=== PATIENT | female | born 1980 | race Caucasian/White ===

== ENCOUNTER 2016-07-03 14:46 | Emergency (ER) | payer MEDICAID ==
[~2016-07-03] VITALS: Wt 81.5 kg
[~2016-07-03 14:46] MED LIST: PRENAT PO
[2016-07-03] MEDS ORDERED: IBUP-1542 PO (16:33)
[2016-07-03] MEDS ORDERED: DIAZ-90 PO (16:36)
[2016-07-03] MEDS ORDERED: IBUPROFEN 800 MG TAB PO ONE (17:00)
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
== END 2016-07-03 17:21 | disposition home or self-care (01) ==
LOC: FTE 14:46
DX: S13.4XXA Sprain of ligaments of cervical spine, initial encounter (principal); V49.49XA Driver injured in collision with other motor vehicles in traffic accident, initial encounter
CPT/HCPCS: 99283

== ENCOUNTER 2017-01-22 22:20 | Outpatient (CLI) | payer MEDICAID ==
[~2017-01-22] VITALS: Ht 157.5 cm; Wt 90.7 kg
[~2017-01-22 22:20] MED LIST changes: +DIAZ-90 PO; +IBUP-1542 PO
[2017-01-23 03:31] VITALS: BP 118/60; PULSE 104; RESP 18; Ht 157.5 cm; Wt 90.7 kg
[2017-01-23 03:45] LABS: BASOPHILS % 0.3 % (0.0-2.0); EOSINOPHILS # 0.1 10^3/ul (0.0-0.5); EOSINOPHILS % 0.6 % (0.0-7.0); HEMATOCRIT 33.3 % (37.0-47.0); HEMOGLOBIN 11.5 g/dl (12.0-16.0); LYMPHOCYTES # 1.5 10^3/ul (0.8-2.9); LYMPHOCYTES % 14.4 % (15.0-51.0); MEAN CORPUSCULAR HGB CONC 34.5 g/dl (32.0-37.0); MEAN CORPUSCULAR VOLUME 89.8 fl (82.0-101.0); MEAN PLATELET VOLUME 10.9 fl (7.4-10.4); MONOCYTE # 0.8 10^3/ul (0.3-0.9); MONOCYTES % 7.7 % (0.0-11.0); NEUTROPHIL # 7.8 10^3/ul (1.6-7.5); NEUTROPHILS % 74.8 % (39.0-77.0); PLATELET COUNT 248 10^3/UL (140-415); RED BLOOD COUNT 3.71 10^6/ul (4.20-5.40); RED CELL DISTRIBUTION WIDTH 13.1 % (11.5-14.5); WHITE BLOOD COUNT 10.4 10^3/ul (4.8-10.8)
[2017-01-23 03:46] LABS: ADD UMIC NO; UR ASCORBIC ACID NEGATIVE (NEGATIVE); UR BILIRUBIN (Dip) NEGATIVE (NEGATIVE); UR BLOOD (Dip) NEGATIVE (NEGATIVE); UR CLARITY CLEAR (CLEAR); UR COLOR YELLOW (YELLOW); UR GLUCOSE (Dip) NEGATIVE (NEGATIVE); UR KETONES (Dip) NEGATIVE (NEGATIVE); UR LEUKOCYTE ESTERASE (Dip) NEGATIVE Leu/ul (NEGATIVE); UR NITRITE (Dip) NEGATIVE (NEGATIVE); UR SPECIFIC GRAVITY (Dip) 1.009 (1.003-1.030); UR TOTAL PROTEIN (Dip) NEGATIVE (NEGATIVE); UR UROBILINOGEN (Dip) NEGATIVE (NEGATIVE)
--- NOTE | 2017-01-23 06:22 | PN ---
Triage Information Date/Time 01/23/610 Weeks of Gestation 25w3d twin gestation : 4 Para: 3 Diabetes: none Hypertention: none Additional information c/o pelvic pain Objective Vital Signs Date Time Temp Pulse Resp B/P Pulse Ox O2 Delivery O2 Flow Rate FiO2 01/23/17 03:31 98.4 104 18 118/60 Room Air Heart Rate: 150's (twin B 165) Contractions: None Exam abdomen soft neg for tenderness u/a neg cbc nl Results/Medications Result Diagram: 01/22/17 2350 Results 24 hrs Laboratory Tests Test 01/22/17 23:50 White Blood Count 10.4 Red Blood Count 3.71 L Hemoglobin 11.5 L Hematocrit 33.3 L Mean Corpuscular Volume 89.8 Mean Corpuscular Hemoglobin 31.0 Mean Corpuscular Hemoglobin Concent 34.5 Red Cell Distribution Width 13.1 Platelet Count 248 Mean Platelet Volume 10.9 H Neutrophils % 74.8 Lymphocytes % 14.4 L Monocytes % 7.7 Eosinophils % 0.6 Basophils % 0.3 Nucleated Red Blood Cells % 0.0 Neutrophils # 7.8 H Lymphocytes # 1.5 Monocytes # 0.8 Eosinophils # 0.1 Basophils # 0.0 Nucleated Red Blood Cells # 0.0 Urine Color YELLOW Urine Clarity CLEAR Urine pH 7.0 Urine Specific [place] 1.009 Urine Ketones NEGATIVE Urine Nitrite NEGATIVE Urine Bilirubin NEGATIVE Urine Urobilinogen NEGATIVE Urine Leukocyte Esterase NEGATIVE Urine Hemoglobin NEGATIVE Urine Glucose NEGATIVE Urine Total Protein NEGATIVE Fibronectin NEGATIVE Imaging Results CVL 3 u/s nl as report shows LISE adequate for both Assessment/Plan IUP 25w3d twin gestations plan discharge home f/u with her OB TATUM NORRIS MD Jan 23, 2017 06:22
== END 2017-01-23 06:00 | disposition home or self-care (01) ==
LOC: OBT 22:20 → L-D 22:20 → OBT 01-23 06:00
PROVIDERS: ATTEND Obstetrics & Gynecology
DX: O30.042 Twin pregnancy, dichorionic/diamniotic, second trimester (principal); Z3A.25 25 weeks gestation of pregnancy
CPT/HCPCS: 36415; 81003; 82731; 85025; Z7500; G0463

== ENCOUNTER 2017-03-17 11:27 | Inpatient (IN) | payer MEDICAID ==
[~2017-03-17] VITALS: Ht 157.5 cm; Wt 92.0 kg
[~2017-03-17 11:27] MED LIST changes: -DIAZ-90 PO; -IBUP-1542 PO
[2017-03-17 12:20] VITALS: Ht 157.5 cm; Wt 92.0 kg
[2017-03-17 12:21] VITALS: BP 110/70; PULSE 92; RESP 20
[2017-03-17 12:39] LABS: ADD UMIC YES; UR ASCORBIC ACID NEGATIVE (NEGATIVE); UR BILIRUBIN (Dip) NEGATIVE (NEGATIVE); UR BLOOD (Dip) NEGATIVE (NEGATIVE); UR CLARITY SLIGHTLY CLOUDY (CLEAR); UR COLOR YELLOW (YELLOW); UR GLUCOSE (Dip) NEGATIVE (NEGATIVE); UR KETONES (Dip) NEGATIVE (NEGATIVE); UR LEUKOCYTE ESTERASE (Dip) 3+ Leu/ul (NEGATIVE); UR NITRITE (Dip) NEGATIVE (NEGATIVE); UR RBC 1 /HPF (0-5); UR SPECIFIC GRAVITY (Dip) 1.005 (1.003-1.030); UR SQUAMOUS EPITHELIAL CELL FEW /HPF (FEW); UR TOTAL PROTEIN (Dip) NEGATIVE (NEGATIVE); UR UROBILINOGEN (Dip) NEGATIVE (NEGATIVE)
[2017-03-17 12:47] LABS: INR 0.96; PROTIME 12.8 Sec (12.2-14.2)
[2017-03-17 12:48] LABS: PARTIAL THROMBOPLASTIN TIME 27.8 Sec (25.0-35.0)
[2017-03-17 12:54] LABS: ALBUMIN 3.1 g/dl (3.3-4.9); BILIRUBIN,INDIRECT 0.2 mg/dl (0-1.1); BILIRUBIN,TOTAL 0.2 mg/dl (0.2-1.3); CALCIUM 9.1 mg/dl (8.4-10.2); CREATININE 0.6 mg/dl (0.44-1.00); POTASSIUM 3.9 mmol/L (3.5-5.1); TOTAL PROTEIN 6.2 g/dl (6.1-8.1)
[2017-03-17 12:54] LABS: BASOPHILS % 0.5 % (0.0-2.0); EOSINOPHILS % 0.7 % (0.0-7.0); HEMATOCRIT 32.8 % (37.0-47.0); HEMOGLOBIN 11.3 g/dl (12.0-16.0); LYMPHOCYTES # 0.8 10^3/ul (0.8-2.9); LYMPHOCYTES % 13.7 % (15.0-51.0); MEAN CORPUSCULAR HGB CONC 34.5 g/dl (32.0-37.0); MEAN CORPUSCULAR VOLUME 84.3 fl (82.0-101.0); MEAN PLATELET VOLUME 11.6 fl (7.4-10.4); MONOCYTE # 0.5 10^3/ul (0.3-0.9); MONOCYTES % 7.8 % (0.0-11.0); NEUTROPHIL # 4.7 10^3/ul (1.6-7.5); NEUTROPHILS % 76.6 % (39.0-77.0); PLATELET COUNT 214 10^3/UL (140-415); RED BLOOD COUNT 3.89 10^6/ul (4.20-5.40); RED CELL DISTRIBUTION WIDTH 13.5 % (11.5-14.5); WHITE BLOOD COUNT 6.1 10^3/ul (4.8-10.8)
[2017-03-17 13:03] LABS: URIC ACID 4.9 mg/dl (3.1-7.9)
--- NOTE | 2017-03-17 13:18 | RADRPT ---
PROCEDURE: US OB biophysical profile. CLINICAL INDICATION: PIH , pain TECHNIQUE: Multiple sonographic images of the pelvis were obtained. The images were reviewed on a PACS workstation. COMPARISON: No prior studies are available for comparison. FINDINGS: There is a twin viable intrauterine gestation. Twin A Cardiac activity is present with 140 beats per minute. There is a vertex presentation. The placenta is anterior. MVP = 4.1 cm Biophysical profile: movement 2/2 tone 2/2. breathing 2/2 LISE 2/2 Total 8/8 Twin B Cardiac activity is present with 140 beats per minute. There is a breech presentation. The placenta is anterior. MVP = 3.9 cm Biophysical profile: movement 2/2 tone 2/2. breathing 2/2 LISE 2/2 Total 8/8 RPTAT: AA . IMPRESSION: Normal biophysical profile for twin gestation . . .Percy Moffett MD, MD Date Time Electronically viewed and signed by .Percy Moffett MD, MD on 03/17/2017 13:17 .S/
[2017-03-17 13:43] LABS: SCRET 0.6 mg/dl (0.44-1.00)
--- NOTE | 2017-03-17 14:31 | TRIAGE ---
OB Triage Datetime Report Generated by CPN: 03/17/2017 14:30 Datetime: 03/17/2017 12:51 Labor Evaluation Frequency: 8-15 Monitor Mode: External Duration (sec)2399: 60 Quality: Moderate Pattern: Normal: <= 5 Contractions in 10 Minutes Resting Tone Hartman: Relaxed Heart Rate FHR Baseline Rate: 150 Monitor Mode: External US FHR Baseline Changes: No Baseline Change Variability: Moderate 6-25 bpm Accelerations: 15X15 Decelerations: None Category: Category I Pain Assessment Pain Scale: 3 Pain Presence: Intermittent Pain Type: Cramping Pain Location: Abdomen Pain Goal: 1 Membrane Status: Intact Datetime: 03/17/2017 12:14 EGA: 31.5 Datetime: 03/17/2017 12:11 Time of Arrival: 03/17/2017 11:25 Arrived By: Ambulatory Arrived From: Home Chief Complaint: HEERE FOR Movement: Present Contractions: Irregular Vaginal Bleeding: None Patient Complaints: Other Time Provider Notified: 03/17/2017 12:00 Provider Notified: DR WEEKSLE Initial Plan: EFM,PIH LABS, NST/BPP Datetime: 03/17/2017 12:05 Labor Evaluation Frequency: IRREG Monitor Mode: External Duration (sec)2399: 50 Quality: Mild Pattern: Normal: <= 5 Contractions in 10 Minutes Resting Tone Hartman: Relaxed Heart Rate FHR Baseline Rate: 150 Monitor Mode: External US FHR Baseline Changes: No Baseline Change Variability: Moderate 6-25 bpm Accelerations: 10X10 Decelerations: None Category: Category I Pain Assessment Pain Scale: 3 Pain Presence: Intermittent Pain Type: Cramping Pain Location: Abdomen Membrane Status: Intact Datetime: 01/23/2017 21:40 Vaginal Exam Dilatation (cms): 0.0 Effacement (%): 30 Station: -3 Datetime: 01/23/2017 06:00 Stage of : OB Triage Labor Evaluation Frequency: 2/HR Monitor Mode: External Duration (sec)2399: 40-60 Quality: Mild Datetime: 01/23/2017 05:00 Stage of : OB Triage Labor Evaluation Frequency: 0 Monitor Mode: External Datetime: 01/23/2017 04:40 Stage of : OB Triage Datetime: 01/23/2017 04:00 Stage of : OB Triage Labor Evaluation Frequency: 4/HR Monitor Mode: External Duration (sec)2399: 40 Quality: Mild Datetime: 01/23/2017 03:18 Stage of : OB Triage Datetime: 01/23/2017 03:00 Stage of : OB Triage Labor Evaluation Frequency: 0 Monitor Mode: External Heart Rate FHR Baseline Rate: 155 Monitor Mode: External US FHR Baseline Changes: No Baseline Change Variability: Moderate 6-25 bpm Accelerations: 10X10 Decelerations: None Datetime: 01/23/2017 02:00 Labor Evaluation Frequency: 2-4 Monitor Mode: External Duration (sec)2399: 40-80 Quality: Mild Pattern: Normal: <= 5 Contractions in 10 Minutes Resting Tone Hartman: Relaxed Heart Rate FHR Baseline Rate: 155 Monitor Mode: External US FHR Baseline Changes: No Baseline Change Variability: Moderate 6-25 bpm Accelerations: 15X15 Decelerations: None Category: Category I Datetime: 01/23/2017 01:00 Heart Rate FHR Baseline Rate: 155 Monitor Mode: External US FHR Baseline Changes: No Baseline Change Variability: Moderate 6-25 bpm Accelerations: 15X15 Decelerations: None Category: Category I Datetime: 01/23/2017 00:00 Heart Rate FHR Baseline Rate: 155 Monitor Mode: External US FHR Baseline Changes: No Baseline Change Variability: Moderate 6-25 bpm Accelerations: 15X15 Decelerations: None Category: Category I Datetime: 01/22/2017 23:36 Stage of : OB Triage Time of Arrival: 01/23/2017 21:20 Arrived By: Wheelchair Arrived From: Home Chief Complaint: ABDOMINAL PAIN Movement: Present Contractions: Denies/Absent Time Contractions Began: 01/22/2017 18:00 Rupture of Membranes: Denies Vaginal Bleeding: None Vaginal Discharge: Denies Recent Sexual Intercouse: Denies Abdominal Trauma: Not Applicable Patient Complaints: None Time Provider Notified: 01/22/2017 21:57 Provider Notified: DR NORRIS Initial Plan: CALL COURTNEY STALLINGS Maternal Assessment Level of Consciousness: Fully Conscious DTR's/Clonus: DTRs 2+; No Clonus Headache: Denies Blurred Vision: No Respiratory Effort: Unlabored; Regular Rhythm; Equal Expansion Breath Sounds, Left: Clear and Equal Breath Sounds, Right: Clear and Equal Nausea/Vomiting: Denies RUQ Epigastric Pain: Denies Lower Extremities Edema: None Degree: None Upper Extremities Edema: None Degree: None Facial Edema: None Temperature Route: Oral Fall Risk Assessment History of Falling: (0) No Secondary Diagnosis: (0) No Ambulatory Aid: (0) Bedrest/Nurse Assist IV Therapy: (0) No Gait: (0) Normal/Bedrest/Immobile Mental Status: (0) Oriented to Own Ability Fall Score: 0 Fall Risk Score Definition: No Risk: No action required Monitor Mode: External Monitor Mode: External US Pain Assessment Pain Scale: 5 Pain Presence: Intermittent Pain Type: Contraction Pain Location: Abdomen; Back Datetime: 01/22/2017 23:00 Stage of : OB Triage Heart Rate FHR Baseline Rate: 145 Monitor Mode: External US FHR Baseline Changes: No Baseline Change Variability: Moderate 6-25 bpm Accelerations: 15X15 Decelerations: None Category: Category I Datetime: 01/22/2017 22:00 Stage of : OB Triage Labor Evaluation Frequency: 0 Monitor Mode: External Heart Rate FHR Baseline Rate: 155 Monitor Mode: External US FHR Baseline Changes: No Baseline Change Variability: Moderate 6-25 bpm Accelerations: 10X10 Decelerations: None Category: Category I Datetime: 01/22/2017 21:57 Stage of : OB Triage Datetime: 01/22/2017 21:28 Stage of : OB Triage Datetime: 01/22/2017 21:25 Stage of : OB Triage Maternal Assessment Level of Consciousness: Fully Conscious DTR's/Clonus: DTRs 2+; No Clonus Headache: Denies Blurred Vision: No Respiratory Effort: Unlabored; Regular Rhythm; Equal Expansion Breath Sounds, Left: Clear and Equal Breath Sounds, Right: Clear and Equal Nausea/Vomiting: Denies RUQ Epigastric Pain: Denies Lower Extremities Edema: None Degree: None Upper Extremities Edema: None Degree: None Facial Edema: None Temperature Route: Oral Fall Risk Assessment History of Falling: (0) No Secondary Diagnosis: (0) No Ambulatory Aid: (0) Bedrest/Nurse Assist IV Therapy: (0) No Gait: (0) Normal/Bedrest/Immobile Mental Status: (0) Oriented to Own Ability Fall Score: 0 Fall Risk Score Definition: No Risk: No action required Monitor Mode: External Monitor Mode: External US Pain Assessment Pain Scale: 5 Pain Presence: Intermittent Pain Type: Cramping Pain Location: Abdomen; Back
[2017-03-17] MEDS ORDERED: BETAMET NA PHOS/AC(6 MG/ML) 5ML INJ IM SCH (16:30)
[2017-03-17] MEDS ORDERED: MAGNESIUM SULFATE 4 GM/100 ML 100 ML IV ONE (16:30)
[2017-03-17] MEDS ORDERED: AMPICILLIN 2 GM/NS (PMX) 100 ML IV ONE (16:30)
[2017-03-17] MEDS: LACTATED RINGER'S 1,000 ML IV SCH (16:59)
[2017-03-17] MEDS: MAGNESIUM SULFATE 20 GM/500 ML 500 ML IV SCH (17:37)
--- NOTE | 2017-03-17 18:34 | RADRPT ---
PROCEDURE: US OB. Ultrasound cervix CLINICAL INDICATION: Size and dates TECHNIQUE: Multiple sonographic images of the pelvis were obtained. In addition, transvaginal imag es of the cervix were obtained. The images were reviewed on a PACS workstation. COMPARISON: No prior studies are available for comparison. FINDINGS: The cervix is closed with a length of 1.6 cm. There is a twin viable intrauterine gestation. BABY A Cardiac activity is present with 150 beats per minute. There is a vertex presentation. The placenta is anterior. Measurements were made in order to determine age. The results are as follows: BPD =8.4 cm HC =30.3 cm AC =30.3 cm FL =6.5 cm The EFW = 2303g, <3%. BABY B Cardiac activity is present with 146 beats per minute. There is a breech presentation. The placenta is anterior. Measurements were made in order to determine age. The results are as follows: BPD =8.6 cm HC =30 cm AC =28.9 cm FL =6.4 cm The EFW = 2138 g, <3%. Estimated gestational age of approximately 33 weeks and 4-6 days. The estimated date of delivery is 04/29/2017 and 05/01/2017, based on ultrasound measurements. RPTAT: AA IMPRESSION: Twin viable intrauterine gestation of approximately 33 weeks and 4-6 days. .Percy Moffett MD, MD Date Time Electronically viewed and signed by .Percy Moffett MD, MD on 03/17/2017 18:33 .S/
--- NOTE | 2017-03-17 20:08 | HP ---
Date/Time of Note Date/Time of Note DATE: 03/17/17 TIME: 20:03 OB - History Hx of Present Free Text/Dictation 4 para 3 with twin gestation at 33 weeks and 1 day of gestation with estimated date of delivery May 06, 2017 Twins are vertex/breech presentation Patient presents with regular contractions She has also been evaluated for -induced hypertension Blood pressures are within normal limits 24 hour urine protein collection is 377 Chief Complaint: Contractions Estimated Due Date: May 06, 2017 : 4 Para: 3 Care: Good Care Abnormal Ultrasound Findings: PROCEDURE: US OB. Ultrasound cervix CLINICAL INDICATION: Size and dates TECHNIQUE: Multiple sonographic images of the pelvis were obtained. In addition, transvaginal images of the cervix were obtained. The images were reviewed on a PACS workstation. COMPARISON: No prior studies are available for comparison. FINDINGS: The cervix is closed with a length of 1.6 cm. There is a twin viable intrauterine gestation. BABY A Cardiac activity is present with 150 beats per minute. There is a vertex presentation. The placenta is anterior. Measurements were made in order to determine age. The results are as follows: BPD = 8.4 cm HC = 30.3 cm AC = 30.3 cm FL = 6.5 cm The EFW = 2303g, <3%. BABY B Cardiac activity is present with 146 beats per minute. There is a breech presentation. The placenta is anterior. Measurements were made in order to determine age. The results are as follows: BPD = 8.6 cm HC = 30 cm AC = 28.9 cm FL = 6.4 cm The EFW = 2138 g, <3%. Estimated gestational age of approximately 33 weeks and 4-6 days. The estimated date of delivery is 04/29/2017 and 05/01/2017, based on ultrasound measurements. RPTAT: AA PROCEDURE: US OB biophysical profile. CLINICAL INDICATION: PIH , pain TECHNIQUE: Multiple sonographic images of the pelvis were obtained. The images were reviewed on a PACS workstation. COMPARISON: No prior studies are available for comparison. FINDINGS: There is a twin viable intrauterine gestation. Twin A Cardiac activity is present with 140 beats per minute. There is a vertex presentation. The placenta is anterior. MVP = 4.1 cm Biophysical profile: movement 2/2 tone 2/2. breathing 2/2 LISE 2/2 Total 02/06 Twin B Cardiac activity is present with 140 beats per minute. There is a breech presentation. The placenta is anterior. MVP = 3.9 cm Biophysical profile: movement 2/2 tone 2/2. breathing 2/2 LISE 2/2 Total 02/06 RPTAT: AA . IMPRESSION: Normal biophysical profile for twin gestation . . .Percy Moffett MD, MD Date Time Electronically viewed and signed by .Percy Moffett MD, MD on 03/17/2017 13: 17 .S/ CC: ANA HELM MD Obstetrical Complications: Gestational Hypertension Medical Complications: None Past Family/Social History * Past Medical, Surgical, Family and Obstetric Histories reviewed from chart. OB Admission Exam Vital Signs Vital Signs Vital Signs Date Time Temp Pulse Resp B/P Pulse Ox O2 Delivery O2 Flow Rate FiO2 03/17/17 12:21 98.0 92 20 110/70 Room Air Physical Exam HEENT: WNL Heart: Rhythm Normal Lungs: Clear, Equal Abdomen: WNL Extremities: Normal Reflexes: Normal Cervical Dilatation: 1cm Membranes: Intact Heart Rate: 140's Accelerations: Accelerations Present Decelerations: No Decelerations Varibility: Moderate Contractions on Admission: 6-10 Minutes Apart Intensity: Moderate Last 72 hours Lab Results CBC & BMP 03/17/17 11:50 03/17/17 12:50 Liver Function Test 03/17/17 11:50 Alanine Aminotransferase (ALT/SGPT) 30 Albumin 3.1 L Alkaline Phosphatase 282 H Aspartate Amino Transf (AST/SGOT) 27 Direct Bilirubin 0.00 Total Protein 6.2 OB Assessment/Plan Reason for admission: labor Other plan: Magnesium sulfate for prevention of labor Betamethasone for lung maturity Antibiotics for GBS prophylaxis Perinatology consultation Copies To: CC: ANA HELM MD, BAHAREH MD Mar 17, 2017 20:08
[2017-03-17] MEDS: AMPICILLIN 1 GM/NS (PMX) 50 ML IV SCH (20:53)
[2017-03-18] MEDS: LACTATED RINGER'S 1,000 ML IV SCH ×3 (00:18→23:12)
[2017-03-18] MEDS: AMPICILLIN 1 GM/NS (PMX) 50 ML IV SCH ×3 (00:24→08:44)
[2017-03-18] MEDS: MAGNESIUM SULFATE 20 GM/500 ML 500 ML IV SCH (03:31)
--- NOTE | 2017-03-18 12:53 | RADRPT ---
PROCEDURE: Limited OB ultrasound CLINICAL INDICATION: Cervical length. TECHNIQUE: Sonographic evaluation to assess the cervical length was performed. COMPARISON: 03/17/2017. FINDINGS: Cervical length measures approximately 1.0 cm, previously 1.6 cm. IMPRESSION: Shortened cervical length, compatible with cervical incompetence. RPTAT: EE .Kal Yuan MD, MD Date Time Electronically viewed and signed by .Kal Yuan MD, on 03/18/2017 12:58 .C/
[2017-03-18] MEDS ORDERED: CEFAZOLIN 2 GM/50 ML (PMX) 50 ML IVPB ONE (13:11)
[2017-03-18] MEDS ORDERED: LACTATED RINGER'S 1,000 ML IV SCH (13:15)
[2017-03-18] MEDS ORDERED: OXYTOCIN 30 UNITS/LR 500 ML IV SCH (13:30)
[2017-03-18] MEDS ORDERED: CEFAZOLIN 2 GM/50 ML (PMX) 50 ML IV SCH ×2 (13:30→15:30)
[2017-03-18 14:12] LABS: BASOPHILS % 0.2 % (0.0-2.0); HEMATOCRIT 35.5 % (37.0-47.0); HEMOGLOBIN 11.7 g/dl (12.0-16.0); LYMPHOCYTES # 0.7 10^3/ul (0.8-2.9); LYMPHOCYTES % 7.9 % (15.0-51.0); MEAN CORPUSCULAR HEMOGLOBIN 28.7 pg (29.0-33.0); MEAN PLATELET VOLUME 11.9 fl (7.4-10.4); MONOCYTE # 0.3 10^3/ul (0.3-0.9); MONOCYTES % 3.2 % (0.0-11.0); NEUTROPHIL # 7.8 10^3/ul (1.6-7.5); NEUTROPHILS % 87.9 % (39.0-77.0); PLATELET COUNT 236 10^3/UL (140-415); RED BLOOD COUNT 4.08 10^6/ul (4.20-5.40); WHITE BLOOD COUNT 8.9 10^3/ul (4.8-10.8)
[2017-03-18 14:16] LABS: INR 0.99; PROTIME 13.1 Sec (12.2-14.2)
[2017-03-18 14:17] LABS: PARTIAL THROMBOPLASTIN TIME 27.2 Sec (25.0-35.0)
[2017-03-18] MEDS ORDERED: METHYLERGONOVINE 0.2 MG INJ ONE (14:23)
[2017-03-18] MEDS ORDERED: HYDROmorphONE 1 MG/ML SYG IV PRN ×3 (15:00)
[2017-03-18] MEDS ORDERED: NALOXONE (0.4 MG/ML) INJ IV PRN (15:00)
[2017-03-18] MEDS ORDERED: MEPERIDINE 25 MG INJ IV PRN (15:00)
[2017-03-18] MEDS ORDERED: HYDROmorphONE (0.2 MG/ML) 10ML SYG IV PRN ×3 (15:00)
[2017-03-18] MEDS ORDERED: DIPHENHYDRAMINE 50 MG INJ IV PRN ×2 (15:00)
[2017-03-18] MEDS ORDERED: ONDANSETRON 4 MG INJ IV PRN ×2 (15:00)
[2017-03-18] MEDS ORDERED: HYDROCODONE/APAP (5/325) TAB PO PRN (15:30)
[2017-03-18] MEDS ORDERED: OXYTOCIN 30 UNITS/LR 500 ML IV PRN ×2 (15:30→17:00)
[2017-03-18] MEDS ORDERED: LANOLIN 7 GM TUBE TOP PRN (15:30)
[2017-03-18] MEDS ORDERED: MISOPROSTOL 200 MCG TAB PR PRN ×2 (15:30→17:00)
[2017-03-18] MEDS ORDERED: CARBOPROST 250 MCG INJ IM PRN ×2 (15:30→17:00)
[2017-03-18] MEDS ORDERED: NA PHOSPHATE/BIPHOS 133 ML ENEMA PR PRN (15:30)
[2017-03-18] MEDS ORDERED: METHYLERGONOVINE 0.2 MG TAB PO PRN (15:30)
[2017-03-18] MEDS ORDERED: METHYLERGONOVINE 0.2 MG INJ IM PRN ×2 (15:30→17:00)
--- NOTE | 2017-03-18 15:35 | OPR ---
Date/Time of Note Date/Time of Note DATE: 03/18/17 TIME: 15:32 Operative Report Free Text/Dictation PRIMARY C/S Preoperative Diagnosis 33.2 WEEKS TWIN GESTATION ACTIVE Labor baby A CEPHALIC Baby B Breech Surgeon see signature line Remote Broadcast Technician: TATUM NORRIS MD Anesthesia Type: spinal Anesthesiologist: ZANE ALDRICH MD Estimated Blood Loss: other Transfusion Required: no Specimens placenta Grafts/Implants: none Complications: no Pt Condition Post Procedure: stable Disposition: PACU ANA HELM MD Mar 18, 2017 15:35
[2017-03-18] MEDS: OXYTOCIN 30 UNITS/LR 500 ML IV SCH ×2 (15:39→18:54)
[2017-03-18] MEDS ORDERED: DIPHENHYDRAMINE 50 MG INJ ONE (16:29)
[2017-03-18] MEDS ORDERED: DIPHENHYDRAMINE 50 MG INJ IM ONE (16:30)
[2017-03-18 16:50] VITALS: BP 120/66; PULSE 81; RESP 18
--- NOTE | 2017-03-18 17:05 | PREOPHP ---
DATE OF ADMISSION: 03/17/2017 HISTORY OF PRESENT ILLNESS: This is a 36-year-old female, 4, para 3, with a twin gestation at 33 weeks and 1 day of gestation, with an EDC of May 04. This patient had come in yesterday for PIH panel, due to mild PIH and due to complaints of headaches and contractions. She was found to have proteinuria of 377 in 24 hours. A number of her blood pressures were normal. All the PIH labs were otherwise normal. She had off and on headaches, which put her in risk position for severe PIH. This patient was kept in the hospital by the laborist, and at this time it was noted that she was having contractions. She had been treated with the betamethasone, magnesium sulfate and antibiotics, and she was kept overnight. She was on 2 g of magnesium sulfate, and at this time she was very uncomfortable, in spite of the tocolysis. She broke through with contractions, and she was examined, with a 3-cm dilatation, 100 percent effacement, with active labor and pain. Patient was taken for a section, due to 2nd fetus being in breech position. PAST HISTORY: She had good care since the beginning of the . She was diagnosed with monochorionic twin gestation. The patient had been seeing the perinatologist regularly and at this time today, she is 33 weeks, 2 days, twin gestation, in active labor. She is advised for a primary section. Her past history is for 3 vaginal deliveries. She had no other complications. The patient at this time does not have any hypertension issues or any headaches, dizziness, or epigastric pain. FAMILY HISTORY: Noncontributory. Otherwise, family history is unremarkable. PHYSICAL EXAMINATION: VITAL SIGNS: Blood pressure of 110/70, pulse is 80, respirations 16, and she was afebrile. HEAD AND NECK: Normal. CHEST: Clear. HEART: Normal sinus rhythm. LUNGS: Clear. ABDOMEN: Soft. Nontender. No masses. The contractions were every 5 minutes. The cervix was 3 cm dilated, 100 percent effaced, -2 station, membranes intact. EXTREMITIES: With 2+ reflexes. Some leg edema. Normal reflexes. DIAGNOSIS: The patient has a diagnosis of twin at 33.2 weeks gestation, in active labor. She is undergoing a primary section. She has been advised of the possible risks and possible complications of the procedure, with her alternatives and options. Written information was provided. She had no more questions and agreed to go ahead with the procedure, with full understanding and no more questions. Dictated By: Shahida Stevens MD /ewa/jb /Document#: [id number]
[2017-03-18 17:13] VITALS: BP 117/67; PULSE 86; RESP 18
--- NOTE | 2017-03-18 17:17 | OPR ---
DATE OF OPERATION: 03/18/2017 PROCEDURE: Primary low segment transverse section. PREOPERATIVE DIAGNOSIS: 33.2 weeks, twin gestation, in active labor. POSTOPERATIVE DIAGNOSIS: 33.2 weeks, twin gestation, in active labor. SURGEON: Dr. Stevens. COAL HANDLER: . ANESTHESIA: Dr. Gonzales. OPERATIVE PROCEDURE: The patient was given a spinal anesthesia, placed in the supine position. A Carrasquillo catheter has been placed in the bladder and a transverse incision, 2 cm above the pubic bone was made. The abdomen was opened in layers without difficulties. The abdominal cavity was reached and the lower uterine segment was identified and an Adrian retractor was placed. A bladder flap was made. The uterus was opened in the midline with a scalpel. The incision was increased laterally on either side for about 3 inches. The baby's head was delivered first baby A delivered without complication, was cephalic presentation. The cord was clamped and cut. The baby was handed over to the fish agent team. The second baby was footling breech. The footling breech was removed was brought out of the incision, the baby was delivered as a breech presentation. The cord was clamped and cut. The baby was handed over to the NICU team again and the cord blood was obtained from both cords. The placenta was removed. It appears to be monochorionic monoamniotic. The placenta was lastly removed and the uterus was cleaned out and closed in 2 layers using number 1 Monocryl continuous suture imbedded in the first line of suture and also single stitches with O chromic MH sutures were applied to the uterus for reinforcement. The tubes and the uterus was a little bit hypertrophic. There was a little cyst on the left paratubal area that was cauterized and both ovaries were normal. The abdominal cavity was cleaned out and a piece of Interceed was left on the incisional area. The peritoneum was closed with a 2- 0 Vicryl suture. The fascia was closed with 0 PDS loop suture, 2- 0 Vicryl for subcutaneous tissue, 3-0 Monocryl subcuticular to the skin. Steri-Strips and Dermabond were applied. The patient tolerated the procedure well and left the OR awake and stable. Sponge counts and instrument counts were correct. Intravenous antibiotics were given for prophylaxis. The urine was clear at the end of the procedure. ESTIMATED BLOOD LOSS: Approximately 900 cc. Dictated By: Shahida Stevens MD /ewa/zak /Document#: [id number]
[2017-03-18 20:00] VITALS: BP 117/67; PULSE 81; RESP 18
[2017-03-18] MEDS: KETOROLAC 30 MG INJ IV PRN (20:01)
[2017-03-18] MEDS: SENNA/DOCUSATE NA (8.6MG/50MG) TAB PO SCH (21:31)
[2017-03-18] MEDS: CEFAZOLIN 2 GM/50 ML (PMX) 50 ML IVPB SCH (21:31)
[2017-03-18 23:54] VITALS: BP 107/59; PULSE 84; RESP 18
[2017-03-19 04:00] VITALS: BP 107/58; PULSE 79; RESP 18
[2017-03-19] MEDS: CEFAZOLIN 2 GM/50 ML (PMX) 50 ML IVPB SCH ×2 (05:36→15:07)
[2017-03-19] MEDS: LACTATED RINGER'S 1,000 ML IV SCH ×4 (08:15→23:08)
[2017-03-19 08:17] VITALS: BP 103/59; PULSE 71; RESP 18
[2017-03-19] MEDS: KETOROLAC 30 MG INJ IV PRN (08:41)
[2017-03-19] MEDS: SENNA/DOCUSATE NA (8.6MG/50MG) TAB PO SCH ×2 (08:41→21:10)
--- NOTE | 2017-03-19 09:40 | PN ---
Date/Time of Note Date/Time of Note DATE: 03/19/17 TIME: 09:38 Assessment/Plan VTE Prophylaxis VTE Prophylaxis Intervention: ambulation Lines/Catheters IV Catheter Type (from Nrsg): Peripheral IV Subjective 24 Hr Interval Summary Free Text/Dictation Anesthesia note; A 36 year female s/p spinal duramorph pod ! is doing ok.pain is controoled, no n /v, itching, back pain or infalmation, or headache. care per surgery Exam/Review of Systems Vital Signs Vitals Vital Signs Date Time Temp Pulse Resp B/P Pulse Ox O2 Delivery O2 Flow Rate FiO2 03/19/17 08:17 98.0 71 18 103/59 Room Air Intake and Output 03/18/17 03/18/17 03/19/17 15:00 23:00 07:00 Intake Total 625 ml 175 ml 1425 ml Output Total 500 ml 1100 ml 700 ml Balance 125 ml -925 ml 725 ml Results Result Diagram: 03/18/17 0537 03/17/17 1150 Results 24 hrs Laboratory Tests Test 03/18/17 11:03 Magnesium Level 5.7 *H Medications Medications Current Medications Naloxone HCl (Narcan) 0.1 mg Q2M PRN IV FOR RESP RATE 8 OR LESS; Start at 15:00; Stop 03/19/17 at 14:59 Ketorolac Tromethamine (Toradol) 30 mg Q6H PRN IV PAIN Last administered on t 08:41; Admin Dose 30 MG; Start 03/18/17 at 15:00; Stop 03/19/17 at 14:59 Hydromorphone HCl (Dilaudid) 1 mg Q3H PRN IV BREAKTHROUGH PAIN; Start 03/18/17 at 15:00; Stop 03/19/17 at 14:59 Hydromorphone HCl (Dilaudid) 0.2 mg Q3H PRN IV PAIN LEVEL 1-5; Start 03/18/17 at 15:00; Stop 03/19/17 at 14:59 Hydromorphone HCl (Dilaudid) 0.4 mg Q3H PRN IV PAIN LEVEL 6-10; Start 03/18/17 at 15:00; Stop 03/19/17 at 14:59 Diphenhydramine HCl (Benadryl) 25 mg Q6H PRN IV ITCHING Last administered on 01:36; Admin Dose 25 MG; Start 03/18/17 at 15:00; Stop 03/19/17 at 14:59 Ondansetron HCl 4 mg 4 mg Q6H PRN IV NAUSEA AND/OR VOMITING; Start 03/18/17 at 15:00; Stop 03/19/17 at 14:59 Lactated Ringer's (Lr) 1,000 ml @ 125 mls/hr Q8H IV Last administered on 08:15; Admin Dose 125 MLS/HR; Start 03/18/17 at 15:08 Methylergonovine Maleate (Methergine) 0.2 mg Q6H PRN PO VAGINAL BLEEDING; Start 03/18/17 at 15:30 Acetaminophen/ Hydrocodone Bitart ([place] (5/325)) 1 tab Q4H PRN PO PAIN LEVEL 4 -6; Start 03/18/17 at 15:30; Status Future hold Acetaminophen/ Hydrocodone Bitart (Fernley (5/325)) 2 tab Q4H PRN PO PAIN LEVEL 7 -10; Start 03/18/17 at 15:30; Status Future hold Ibuprofen (Motrin) 800 mg Q8 PO ; Start 03/19/17 at 15:00 Simethicone (Mylicon) 160 mg Q8H PRN PO DISTENSION/GAS/BLOATING; Start at 15:30 Senna/Docusate Sodium (Senokot-S) 1 tab BID PO Last administered on 03/19/17 08:41; Admin Dose 1 TAB; Start 03/18/17 at 21:00 Sodium Biphosphate/ Sodium Phosphate (Fleet Enema) 133 ml DAILY PRN GA CONSTIPATION; Start 03/18/17 at 15:30 Diphtheria/ Tetanus/Acell Pertussis (Adacel) 0.5 ml ONCE ONCE IM* ; Start at 09:00; Stop 03/21/17 at 09:01 Measles/Mumps/ Rubella Vaccine Live 0.5 ml 0.5 ml ONCE ONCE SC* ; Start at 09:00; Stop 03/21/17 at 09:01 Oxytocin/Lactated Ringer's 500 ml @ 0 mls/hr ONCE PRN IV For Hemorrhage Management; Start 03/18/17 at 17:00 Methylergonovine Maleate (Methergine) 0.2 mg ONCE PRN IM VAGINAL BLEEDING; Start 03/18/17 at 17:00 Carboprost Tromethamine (Hemabate) 250 mcg ONCE PRN IM VAGINAL BLEEDING; Start 03/18/17 at 17:00 Misoprostol 1000 mcg 1,000 mcg ONCE PRN GA VAGINAL BLEEDING; Start 03/18/17 at 17:00 Cefazolin Sodium/ Dextrose (Ancef 2 Gm/50 ml (Pmx)) 50 ml @ 100 mls/hr Q8H IVPB Last administered on 03/19/17t 05:36; Admin Dose 100 MLS/HR; Start at 22:00; Stop 03/19/17 at 14:29 ZANE ALDRICH MD Mar 19, 2017 09:40
[2017-03-19 09:57] LABS: WHITE BLOOD COUNT 13.8 10^3/ul (4.8-10.8)
[2017-03-19 09:58] LABS: BASOPHILS % 0.1 % (0.0-2.0); HEMATOCRIT 27.7 % (37.0-47.0); HEMOGLOBIN 9.1 g/dl (12.0-16.0); LYMPHOCYTES # 1.2 10^3/ul (0.8-2.9); LYMPHOCYTES % 8.5 % (15.0-51.0); MEAN CORPUSCULAR HEMOGLOBIN 28.1 pg (29.0-33.0); MEAN CORPUSCULAR HGB CONC 32.9 g/dl (32.0-37.0); MEAN CORPUSCULAR VOLUME 85.5 fl (82.0-101.0); MEAN PLATELET VOLUME 12.1 fl (7.4-10.4); MONOCYTE # 0.8 10^3/ul (0.3-0.9); MONOCYTES % 5.6 % (0.0-11.0); NEUTROPHIL # 11.7 10^3/ul (1.6-7.5); PLATELET COUNT 218 10^3/UL (140-415); RED BLOOD COUNT 3.24 10^6/ul (4.20-5.40); RED CELL DISTRIBUTION WIDTH 13.8 % (11.5-14.5)
[2017-03-19 12:51] VITALS: BP 102/58; PULSE 85; RESP 18
--- NOTE | 2017-03-19 14:03 | PN ---
Date/Time of Note Date/Time of Note DATE: 03/19/17 TIME: 14:02 Assessment/Plan Lines/Catheters IV Catheter Type (from Nrsg): Peripheral IV Subjective 24 Hr Interval Summary day 1 postop afebrile, feels good not in pain incision dry lochia normal Constitutional: BM, ambulates, flatus, improved, no complaints, urine output Feeding: advancing diet Detailed Summary Eyes: no complaints ENT: no complaints Respiratory: no complaints Cardiovascular: no complaints Gastrointestinal: no complaints Genitourinary: no complaints Musculoskeletal: no complaints Skin: no complaints Neurologic: no complaints Endocrine: no complaints Lymphatic: no complaints Psychological: nl mood/affect, no complaints Immunologic: no complaints Exam/Review of Systems Vital Signs Vitals Vital Signs Date Time Temp Pulse Resp B/P Pulse Ox O2 Delivery O2 Flow Rate FiO2 03/19/17 12:51 98.4 85 18 102/58 Room Air Intake and Output 03/18/17 03/18/17 03/19/17 15:00 23:00 07:00 Intake Total 625 ml 175 ml 1425 ml Output Total 500 ml 1100 ml 700 ml Balance 125 ml -925 ml 725 ml Exam Constitutional: alert, oriented, well developed Psych: nl mood/affect, no complaints Head: atraumatic, normocephalic Eyes: EOMI, nl conjunctiva, nl lids, nl sclera ENMT: mucosa pink and moist, nl external ears & nose, nl lips & teeth, nl nasal mucosa & septum Neck: non-tender, supple Respiratory: clear to auscultation, normal air movement Cardiovascular: nl pulses, regular rate and rhythm Gastrointestinal: nl liver, spleen, non-tender, soft Musculoskeletal: nl extremities to inspection, nl gait and stance Extremities: normal pulses Neurological: MRI CT TECH II-XII intact, nl mental status, nl speech, nl strength Skin: nl turgor, rash or lesions Lymph: nl lymph nodes Results Result Diagram: 03/19/17 0859 03/17/17 1150 ANA HELM MD Mar 19, 2017 14:03
[2017-03-19] MEDS ORDERED: BISACODYL (EC) 5 MG TAB PO ONE (14:30)
[2017-03-19] MEDS: IBUPROFEN 800 MG TAB PO SCH ×2 (15:00→21:10)
[2017-03-19 15:11] VITALS: BP 91/48; PULSE 80; RESP 18
[2017-03-19] MEDS: HYDROCODONE/APAP (5/325) TAB PO PRN (15:35)
[2017-03-19 20:25] VITALS: BP 107/69; PULSE 87; RESP 16
[2017-03-20 01:00] VITALS: BP 105/58; PULSE 85; RESP 14
[2017-03-20 04:56] VITALS: BP 111/64; PULSE 90; RESP 15
[2017-03-20] MEDS: IBUPROFEN 800 MG TAB PO SCH ×3 (06:44→22:11)
[2017-03-20] MEDS: LACTATED RINGER'S 1,000 ML IV SCH ×3 (07:08→23:08)
[2017-03-20 08:22] VITALS: BP 111/63; PULSE 88; RESP 18
[2017-03-20] MEDS: SENNA/DOCUSATE NA (8.6MG/50MG) TAB PO SCH ×2 (09:18→20:10)
--- NOTE | 2017-03-20 11:26 | PN ---
Date/Time of Note Date/Time of Note DATE: 03/20/17 TIME: 11:25 Assessment/Plan Lines/Catheters IV Catheter Type (from Nrsg): Peripheral IV Subjective 24 Hr Interval Summary day 2 post c/s afebrile feels good Constitutional: no complaints Feeding: advancing diet Pain Control: mild Detailed Summary Eyes: no complaints ENT: no complaints Respiratory: no complaints Cardiovascular: no complaints Gastrointestinal: no complaints Genitourinary: no complaints Musculoskeletal: no complaints Skin: no complaints Neurologic: no complaints Endocrine: no complaints Lymphatic: no complaints Psychological: nl mood/affect, no complaints Immunologic: no complaints Exam/Review of Systems Vital Signs Vitals Vital Signs Date Time Temp Pulse Resp B/P Pulse Ox O2 Delivery O2 Flow Rate FiO2 03/20/17 08:22 99.1 88 18 111/63 Room Air Intake and Output 03/19/17 03/19/17 03/20/17 15:00 23:00 07:00 Intake Total 671 ml 125 ml Output Total 1300 ml 400 ml Balance -629 ml -275 ml Exam Constitutional: alert, oriented, well developed Psych: nl mood/affect, no complaints Head: atraumatic, normocephalic Eyes: EOMI, nl conjunctiva, nl lids, nl sclera ENMT: mucosa pink and moist, nl external ears & nose, nl lips & teeth, nl nasal mucosa & septum Neck: non-tender, supple Respiratory: clear to auscultation, normal air movement Cardiovascular: nl pulses, regular rate and rhythm Gastrointestinal: nl liver, spleen, non-tender, soft Musculoskeletal: nl extremities to inspection, nl gait and stance Extremities: normal pulses Neurological: 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
[2017-03-20] MEDS: HYDROCODONE/APAP (5/325) TAB PO PRN (11:58)
[2017-03-20 15:43] VITALS: BP 119/66; PULSE 86; RESP 18
[2017-03-20 19:55] VITALS: BP 117/66; PULSE 84; RESP 18
[2017-03-21 04:00] VITALS: BP 117/61; RESP 20
[2017-03-21] MEDS: IBUPROFEN 800 MG TAB PO SCH ×2 (05:31→14:00)
[2017-03-21] MEDS: LACTATED RINGER'S 1,000 ML IV SCH (07:08)
[2017-03-21 08:00] VITALS: BP 118/69; PULSE 72; RESP 16
[2017-03-21] MEDS: SENNA/DOCUSATE NA (8.6MG/50MG) TAB PO SCH (08:39)
[2017-03-21] MEDS ORDERED: MEASLES,MUMPS,RUBELLA VACCINE INJ SC* ONE (09:00)
[2017-03-21] MEDS ORDERED: DIPHTH/TET/ACEL PERTUSS (ADULT) 0.5 ML VIAL IM* ONE (09:00)
--- NOTE | 2017-03-21 10:33 | PD.PPDC ---
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
--- NOTE | 2017-03-21 10:44 | DS ---
Date/Time of Note Date/Time of Note DATE: 03/21/17 TIME: 10:34 Discharge Summary Admission/Discharge Info Admit Date/Time Mar 17, 2017 at 14:20 Discharge Date/Time March 21, 2017 Discharge Diagnosis 33.2 weeks twin gestation. active labor. Primary low segment transverse section Patient Condition: Good Procedures 36 years old female multigravida with 33.2 weeks gestation in active labor. she was admitted for active labor and a primary section was done. A tubal ligation was not done since the tubal consent papers was not in hospital. She delivered 2 healthy babies over 4 pounds each with good Apgars Hx of Present Illness 36 years old multigravida with a twin gestation, she had care in my office with no complications. she had been diagnosed with GDM that was diet controlled. she came in active labor. A primary section was offered due to malpresentation. a tubal ligation papers was consented in the office but they were not with the papers. Patient was advised she will have this procedure done after 6 weeks as an outpatient Hospital Course She did very well after surgery, she was ambulatory on the first day. she was having bowel movement on the second day and today is the third day and she is tolerating diet. she is ambulating, the incision is looking good with no infection and her lochia is normal and she is in good spirits and she would like to go home. Her laboratory testing shows that she is anemic but she has no symptoms of chest pain, shortness of breath fatigue or weakness. She will be treated with iron at home and vitamins. She was giving ibuprofen [place] to control her pain. She is to see me in the office in a week or earlier if she has any problem. She is stable to go home Incision looks good, clean and further instructions of how to take care of herself and her incision was given. Home Meds Reported Medications Multivit/Min/Fol Ac/Iron/Pren* ( S*) 1 Tab Tab, 1 TAB PO DAILY, TAB 12/10/14 Primary Care Provider Care Physician No Primary Time spent on discharge: < 30 minutes ANA HELM MD Mar 21, 2017 10:44
[2017-03-21 12:37] LABS: CHENODEOXYCHOLIC ACID 8.1 umol/L (< OR = 3.1); CHOLIC ACID 6.7 umol/L (< OR = 1.8); DEOXYCHOLIC ACID 0.5 umol/L (< OR = 2.4); TOTAL BILE ACIDS 15.3 umol/L (< OR = 6.8)
== END 2017-03-21 12:55 | disposition home or self-care (01) | DRG 765 ==
LOC: OBT 11:27 → L-D 11:28 → OBG 14:20 → INTOOBSV 14:20 → OBT 14:20 → OBSVTOIN 14:20 → L-D 03-18 13:04 → PP1 03-18 17:01
PROVIDERS: ADMIT Obstetrics & Gynecology; ATTEND Obstetrics & Gynecology
PROC: 10D00Z1 Extraction of Products of Conception, Low, Open Approach (ICD-10-PCS; principal; 2017-03-18 13:00)
DX: O60.14X0 Preterm labor third trimester with preterm delivery third trimester, not applicable or unspecified (principal); O14.93 Unspecified pre-eclampsia, third trimester; Z37.2 Twins, both liveborn; O30.013 Twin pregnancy, monochorionic/monoamniotic, third trimester; O32.1XX1 Maternal care for breech presentation, fetus 1; Z3A.33 33 weeks gestation of pregnancy
CPT/HCPCS: 76815; 76817; 76818; 80053; 81001; 82575; 83735; 83789; 84156; 84560; 85025; 85384; 85610; 85730; 86592; 86850; 86900; 86901; 87086; 87340; 88307; 90715; 99464; G0463; J0290; J0690; J0702; J1200; J1885; J2210; J2590; J3475; J7120

== ENCOUNTER 2018-08-18 19:56 | Emergency (ER) | payer MEDICAID ==
[~2018-08-18] VITALS: Ht 154.9 cm; Wt 85.5 kg
[2018-08-18 20:14] VITALS: Ht 154.9 cm; Wt 85.5 kg
[2018-08-19] MEDS ORDERED: ACETAMINOPHEN 325 MG TAB PO ONE
[2018-08-19] MEDS ORDERED: GUAI-637 PO (01:24)
[2018-08-19] MEDS ORDERED: ACET-141 PO (01:24)
--- NOTE | 2018-08-19 01:25 | ERD ---
ER Documentation Chief Complaint Chief Complaint COUGH AND FEVER X 2 DAYS, 14 WEEKS ROS All systems reviewed and are negative except as per history of present illness. Medications Home Meds Active Scripts Guaifenesin* (Robitussin*) 100 Mg/5 Ml Syrup, 100 MG PO Q6H PRN for COUGH for 5 Days, #1 BOTTLE Prov:GIRISH ROMERO DO 08/19/18 Acetaminophen* (Acetaminophen*) 500 MG Extra Strength Tablet, 500 MG PO Q4H PRN for PAIN AND OR ELEVATED TEMP, #30 TAB Prov:GIRISH ROMERO DO 08/19/18 Reported Medications Multivit/Min/Fol Ac/Iron/Pren* ( S*) 1 Tab Tab, 1 TAB PO DAILY, TAB 12/10/14 Allergies Allergies: Coded Allergies: No Known Allergy (Unverified , 01/23/17) PMhx/Soc History of Surgery: No Anesthesia Reaction: No Hx Neurological Disorder: No Hx Respiratory Disorders: No Hx Cardiac Disorders: No Hx Psychiatric Problems: No Hx Miscellaneous Medical Probl: No Hx Alcohol Use: No Hx Substance Use: No Hx Tobacco Use: No Smoking Status: Never smoker Physical Exam Vitals Vital Signs Date Temp Pulse Resp B/P (MAP) Pulse Ox O2 O2 Flow FiO2 Time Delivery Rate 08/18/18 100.6 117 18 153/72 99 20:14 (99) Physical Exam Const: No acute distress Head: Atraumatic Eyes: Normal Conjunctiva ENT: Normal External Ears, Nose and Mouth. Neck: Full range of motion. No meningismus. Resp: Clear to auscultation bilaterally Cardio: Regular rate and rhythm, no murmurs Abd: Soft, non tender, non distended. Normal bowel sounds Skin: No petechiae or rashes Back: No midline or flank tenderness Ext: No cyanosis, or edema Neur: Awake and alert Psych: Normal Mood and Affect Results 24 hrs Current Medications Medications Dose Sig/Gabino Start Time Status Last (Trade) Ordered Route PRN Stop Time Admin Dose Reason Admin 650 mg ONCE ONCE 08/19/18 DC 08/18/18 Acetaminophen PO 00:00 23:41 (Tylenol 08/19/18 00:01 Tab) Departure Diagnosis: Primary Impression: URI (upper respiratory infection) URI type: unspecified URI Qualified Codes: J06.9 - Acute upper respiratory infection, unspecified Condition: Fair Patient Instructions: Preventing Common Respiratory Infections Referrals: COMMUNITY CLINICS YOU HAVE RECEIVED A MEDICAL SCREENING EXAM AND THE RESULTS INDICATE THAT YOU DO NOT HAVE A CONDITION THAT REQUIRES URGENT TREATMENT IN THE EMERGENCY DEPARTMENT. FURTHER EVALUATION AND TREATMENT OF YOUR CONDITION CAN WAIT UNTIL YOU ARE SEEN IN YOUR DOCTORS OFFICE WITHIN THE NEXT 1-2 DAYS. IT IS YOUR RESPONSIBILITY TO MAKE AN APPOINTMENT FOR FOLOW-UP CARE. IF YOU HAVE A PRIMARY DOCTOR --you should call your primary doctor and schedule an appointment IF YOU DO NOT HAVE A PRIMARY DOCTOR YOU CAN CALL OUR PHYSICIAN REFERRAL HOTLINE AT IF YOU CAN NOT AFFORD TO SEE A PHYSICIAN YOU CAN CHOSE FROM THE FOLLOWING [facility] [address] [facility] [address] [facility] [facility] [address] [facility] [facility] [address] [facility]. [facility] [address] [facility]. [facility] [address] Additional Instructions: Call your primary care doctor TOMORROW for an appointment during the next 1-2 days.See the doctor sooner or return here if your condition worsens before your appointment time. Llame al doctor MAANA y blair joss ESTUARDO PARA DENTRO DE 1-2 PIZARRO.Dgale a la secretaria que nosotros le instruimos hacer esta estuardo.Avise o llame si musa condicin se empeora antes de la estuardo. Regresa aqui si peor o no mejor. GIRISH ROMERO DO Aug 19, 2018 01:25
== END 2018-08-19 01:44 | disposition home or self-care (01) ==
LOC: FTE 19:56
DX: J06.9 Acute upper respiratory infection, unspecified (principal)
CPT/HCPCS: 87400; Z7610; 99283

== ENCOUNTER 2019-01-21 16:05 | Inpatient (IN) | payer MEDICAID ==
[~2019-01-21] VITALS: Ht 157.5 cm; Wt 94.2 kg
[~2019-01-21 16:05] MED LIST changes: +ACET-141 PO; +GUAI-637 PO
[2019-01-21 17:13] VITALS: BP 119/71; PULSE 86; RESP 18; Ht 157.5 cm; Wt 94.2 kg
[2019-01-21] MEDS ORDERED: LACTATED RINGER'S 1,000 ML IV ONE (18:00)
[2019-01-21] MEDS ORDERED: TERBUTALINE 1 MG/ML INJ SC ONE ×2 (18:00→19:00)
[2019-01-21] MEDS: LACTATED RINGER'S 1,000 ML IV SCH (20:42)
--- NOTE | 2019-01-21 23:55 | TRIAGE ---
OB Triage Datetime Report Generated by CPN: 01/21/2019 23:55 Datetime: 01/21/2019 21:08 Vaginal Exam Dilatation (cms): 1.0 Effacement (%): 40 Station: -3 Exam By: ADY Membrane Status: Intact Vaginal Bleeding: None Cervix, Consistency: Moderate Cervix, Position: Midposition Presentation 'A': Cephalic Datetime: 01/21/2019 21:00 Labor Evaluation Frequency: X5 Monitor Mode: External Duration (sec)2399: 60-120 Quality: Mild Pattern: Normal: <= 5 Contractions in 10 Minutes Resting Tone Morse: Relaxed Heart Rate FHR Baseline Rate: 150 Monitor Mode: External US Variability: Moderate 6-25 bpm Accelerations: 15X15 Decelerations: None Category: Category I Datetime: 01/21/2019 20:08 Vaginal Exam Dilatation (cms): 1.0 Effacement (%): 40 Station: -3 Exam By: ady Membrane Status: Intact Vaginal Bleeding: None Cervix, Consistency: Firm Cervix, Position: Posterior Presentation 'A': Cephalic Datetime: 01/21/2019 20:00 Labor Evaluation Frequency: X4 Monitor Mode: External Duration (sec)2399: 60-80 Quality: Mild Pattern: Normal: <= 5 Contractions in 10 Minutes Resting Tone Morse: Relaxed Heart Rate FHR Baseline Rate: 145 Monitor Mode: External US Variability: Moderate 6-25 bpm Accelerations: 15X15 Decelerations: None Category: Category I Pain Assessment Pain Scale: 5 Pain Presence: Intermittent Pain Type: Contraction Pain Location: Abdomen Pain Goal: 5 Pain Relief Measures: Comfort Measures Pain Assessment Comments: STATES PAIN IS TOLERABLE Datetime: 01/21/2019 17:10 Assessment Type: Triage Maternal Assessment Level of Consciousness: Keenly Alert, Responsive DTR's/Clonus: DTRs 2+; No Clonus Headache: Denies Blurred Vision: No Respiratory Effort: Unlabored; Regular Rhythm; Equal Expansion Breath Sounds, Left: Clear and Equal Breath Sounds, Right: Clear and Equal Nausea/Vomiting: Denies RUQ Epigastric Pain: Denies Lower Extremities Edema: None Degree: None Upper Extremities Edema: None Degree: None Facial Edema: None Fall Risk Assessment History of Falling: (0) No Secondary Diagnosis: (0) No Ambulatory Aid: (0) Bedrest/Nurse Assist IV Therapy: (0) No Gait: (0) Normal/Bedrest/Immobile Mental Status: (0) Oriented to Own Ability Fall Score: 0 Fall Risk Score Definition: No Risk: No action required Datetime: 01/21/2019 17:07 Monitor Mode: External Monitor Mode: External US Datetime: 01/21/2019 16:20 Time of Arrival: 01/21/2019 15:37 EGA: 36.3 Arrived By: Ambulatory Arrived From: Home Chief Complaint: PT HERE C/O UC'S PREVIOUS C/S X 2. Movement: Present Contractions: Irregular Rupture of Membranes: Denies Vaginal Bleeding: None Vaginal Discharge: Denies Recent Sexual Intercouse: Denies Abdominal Trauma: Not Applicable Patient Complaints: Contractions; Cramping; Back Pain Time Provider Notified: 01/21/2019 17:25 Provider Notified: MYRNA GONZALES Initial Plan: IV/TERB (Annotations: Data stored by CPN on behalf of user)
[2019-01-22] MEDS ORDERED: TERBUTALINE 1 MG/ML INJ SC ONE
[2019-01-22] MEDS ORDERED: OXYTOCIN 30 UNITS/LR 500 ML IV SCH
[2019-01-22] MEDS ORDERED: CEFAZOLIN 2 GM/50 ML (PMX) 50 ML IVPB SCH
[2019-01-22] MEDS: BETAMET NA PHOS/AC(6 MG/ML) 2 ML INJ SYG IM SCH ×2 (01:29→13:41)
[2019-01-22] MEDS: LACTATED RINGER'S 1,000 ML IV SCH ×3 (03:27→11:49)
--- NOTE | 2019-01-22 09:57 | PREAC ---
Date/Time of Note Date/Time of Note DATE: 01/22/19 TIME: 09:56 Anesthesia Eval and Record Evaluation Time Pre-Procedure Interview DATE: 01/22/19 TIME: 09:56 Age 38 Sex female NPO: 8 hrs Preoperative diagnosis Repeat in labor and request for BTL Planned procedure and BTL Past Medical History Past Medical History: Includes Heme: Anemia : : (5), Para: (4), Gestational age: (36) Surgery & Anesthesia Issues No known issue Meds Anticoagulation: No Beta Licha within 24 hr: No Reason Beta Licha not given: Pt. not on B-Licha Reported Medications Multivit/Min/Fol Ac/Iron/Pren* ( S*) 1 Tab Tab, 1 TAB PO DAILY, TAB 12/10/14 Discontinued Scripts Guaifenesin* (Robitussin*) 100 Mg/5 Ml Syrup, 100 MG PO Q6H PRN for COUGH for 5 Days, #1 BOTTLE Prov:GIRISH ROMERO DO 08/19/18 Acetaminophen* (Acetaminophen*) 500 MG Extra Strength Tablet, 500 MG PO Q4H PRN for PAIN AND OR ELEVATED TEMP, #30 TAB Prov:GIRISH ROMERO DO 08/19/18 Current Medications Lactated Ringer's 1,000 ml @ 125 mls/hr Q8H IV Last administered on 01/22/19at 03:27; Admin Dose 125 MLS/HR; Start 01/21/19 at 20:00 Betamethasone Acet/Betameth SodPhos (Celestone Soluspan) 12 mg Q12H IM Last administered on 01/22/19at 01:29; Admin Dose 12 MG; Start 01/22/19 at 00:00; Stop 01/22/19 at 12:01 Cefazolin Sodium/ Dextrose 50 ml @ 100 mls/hr ONCE IVPB ; Start 01/22/19 at 00:00 Oxytocin/Lactated Ringer's 500 ml @ 125 mls/hr POST IV ; Start 01/22/19 at 00:00 Oxytocin/Lactated Ringer's 500 ml @ 0 mls/hr ONCE PRN IV .VAGINAL BLEEDING; Start 01/22/19 at 00:00 Methylergonovine Maleate (Methergine) 0.2 mg ONCE PRN IM .VAGINAL BLEEDING; Start 01/22/19 at 00:00 Carboprost Tromethamine (Hemabate) 250 mcg ONCE PRN IM .VAGINAL BLEEDING; Start 01/22/19 at 00:00 Misoprostol (Cytotec) 1,000 mcg ONCE PRN CO .VAGINAL BLEEDING; Start 01/22/19 at 00:00 Meds reviewed: Yes Allergies Coded Allergies: No Known Allergy (Unverified , 01/23/17) Allergies Reviewed: Yes Labs/Studies Labs Reviewed: Reviewed by anesthesiologist Result Diagram: 01/22/19 0035 Laboratory Tests 01/22/19 00:35 Blood Bank Test 01/22/19 00:35 Antibody Screen NEGATIVE Blood Type B POSITIVE Rh Immune Globulin Candidate NO test: Positive Studies: ECG (n/a), CXR (n/a) Pre-procedure Exam Last vitals Vital Signs Date Temp Pulse Resp B/P (MAP) Pulse Ox O2 O2 Flow FiO2 Time Delivery Rate 01/21/19 98.5 86 18 119/71 Room Air 17:13 (87) Airway: Adequate mouth opening, Adequate thyromental dist Mallampati: Mallampati II Teeth: Normal Lung: Normal Heart: Normal ASA Physical Status ASA physical status: 2 Emergency: None Planned Anesthetic Neuraxial: Spinal Planned Pain Management Sub-arachniod narcotics, Parenteral pain med Pre-operative Attestations Prior to commencing anesthesia and surgery, the patient was re-evaluated, there was verification of: *The patient's identity *The results of appropriate recent lab work and preoperative vital signs *The above evaluation not changing prior to induction *Anesthetic plan, risk benefits, alternative and complications discussed with patient/family; questions answered; patient/family understands, accepts and wishes to proceed. JAIRO TINAJERO MD Jan 22, 2019 09:57
[2019-01-22] MEDS ORDERED: ONDANSETRON 4 MG INJ IV ONE (10:00)
[2019-01-22] MEDS ORDERED: CITRIC ACID/NA CITRATE 30 ML CUP PO ONE (10:00)
[2019-01-22] MEDS ORDERED: LACTATED RINGER'S 1,000 ML IV PRN (16:40)
--- NOTE | 2019-01-22 18:36 | HP ---
Date/Time of Note Date/Time of Note DATE: 01/22/19 TIME: 18:23 OB - History Hx of Present Free Text/Dictation 38 y.o who had c/s for twin gestation presented to triage with c/o uc's at 36w3d. CAT tracing VE cx closed but patient c/0 lot of discomfort. Pain level 5/10 with UC 3-5min apart not resolved with IV hydration with multiple dose of terbutaline. decided to prepare for delivery due to PTL. admitted for x2 dose of BMZ q12hrs proceed for repeat c/s and tubal sterilization. Chief Complaint: UC's Estimated Due Date: Feb 15, 2019 : 5 Para: 4 Spontaneous : 0 Therapeutic : 0 Care: Good Care Ultrasounds: Normal mid trimester US Obstetrical Complications: None Medical Complications: None Past Family/Social History * Past Medical, Surgical, Family and Obstetric Histories reviewed from chart. Blood Type: B+ Rubella: immune RPR/VDRL: Negative GBS Status: Negative HBsAG: Negative OB Admission Exam Vital Signs Vital Signs Vital Signs Date Temp Pulse Resp B/P (MAP) Pulse Ox O2 O2 Flow FiO2 Time Delivery Rate 01/21/19 98.5 86 18 119/71 Room Air 17:13 (87) Physical Exam HEENT: WNL Heart: Rhythm Normal Lungs: Clear, Equal Abdomen: WNL Extremities: Normal Reflexes: Normal Cervical Dilatation: None Effacement: 50% Station: -3 Membranes: Intact Amniotic Fluid: Unevaluable Heart Rate: 140's Accelerations: Accelerations Present Decelerations: No Decelerations Varibility: Moderate Contractions on Admission: < 5 Minutes Apart Intensity: Moderate Last 72 hours Lab Results CBC & BMP 01/22/19 00:35 OB Assessment/Plan Reason for admission: section Other Assessment: A IUP 36w4d PTL x1 previous c/s multiparity for tubal sterilization P RLTCS and BTL Plan: Section, Other (BTL) TATUM NORRIS MD Jan 22, 2019 18:33
[2019-01-22] MEDS ORDERED: morphine SULFATE/PF (10 MG/10 ML) INJ ONE (18:44)
[2019-01-22] MEDS ORDERED: OXYTOCIN 10 UNIT INJ ONE (18:44)
[2019-01-22] MEDS ORDERED: OXYTOCIN 30 UNITS/LR 500 ML BAG IV ONE (18:44)
[2019-01-22] MEDS ORDERED: PHENYLephrine (100 MCG/ML) 10ML SYG ONE (18:44)
[2019-01-22] MEDS ORDERED: DEXAMETHASONE 4 MG/ML 1 ML INJ ONE (18:59)
[2019-01-22] MEDS ORDERED: ONDANSETRON 4 MG INJ ONE (18:59)
[2019-01-22] MEDS ORDERED: KETOROLAC 30 MG INJ ONE (18:59)
[2019-01-22] MEDS ORDERED: METOCLOPRAMIDE 10 MG INJ ONE (18:59)
[2019-01-22] MEDS ORDERED: HYDROCODONE/APAP (5/325) TAB PO PRN (19:30)
[2019-01-22] MEDS ORDERED: HYDROmorphONE 0.5 MG/0.5 ML SYG IV PRN ×2 (19:30)
[2019-01-22] MEDS ORDERED: DIPHENHYDRAMINE 50 MG INJ IV PRN ×2 (19:30→23:30)
[2019-01-22] MEDS ORDERED: ONDANSETRON 4 MG INJ IV PRN ×2 (19:30→23:30)
[2019-01-22] MEDS ORDERED: NALOXONE (0.4 MG/ML) INJ IV PRN (19:30)
[2019-01-22] MEDS ORDERED: ACETAMINOPHEN 500 MG TAB PO PRN (19:30)
[2019-01-22] MEDS ORDERED: morphine 2 MG INJ IV PRN ×2 (19:30)
[2019-01-22] MEDS ORDERED: KETOROLAC 30 MG INJ IV PRN (19:30)
[2019-01-22] MEDS ORDERED: NALBUPHINE HCL (10 MG/1 ML) INJ IV PRN (19:30)
--- NOTE | 2019-01-22 20:32 | OPPN ---
Date/Time of Note Date/Time of Note DATE: 01/22/19 TIME: 20:24 Operative Report Planned Procedure Free Text/Dictation IUP 36w4d in PTL with previous c/s Procedure date Jan 22, 2019 Procedure(s) RLTC? and Rt fimbiectomy and left taylor partial salphingectomy Performed by see signature line Frame Cleaner: CHRISTINE VILLAGRAN MD 2nd Frame Cleaner none Anesthesiologist: JAIRO TINAJERO MD Pre-procedure diagnosis IUP 36w4d with previous c/s in PTL multiparity for tubal sterilization [id number] Anesthesia Type: [id number] spinal Post-Procedure Post-procedure diagnosis delivered female infant peritubal adhesion Findings Live Baby [f], Apgars [9] and [9], weight [7lb2oz], position [LOT], [Vx] presentation [loose x1]cord. Estimated Blood Loss: 400 - 500 mls Specimen(s) none Grafts/Implant(s) none Complication(s) none TATUM NORRIS MD Jan 22, 2019 20:32
--- NOTE | 2019-01-22 21:40 | PAC ---
Date/Time of Note Date/Time of Note DATE: 01/22/19 TIME: 21:36 Post-Anesthesia Notes Post-Anesthesia Note Last documented vital signs Vital Signs Date Temp Pulse Resp B/P (MAP) Pulse Ox O2 O2 Flow FiO2 Time Delivery Rate 01/21/19 98.5 86 18 119/71 100 Room Air 20:30 (87) Activity: WNL Respiratory function: WNL Cardiovascular function: WNL Mental status: Baseline Pain reasonably controlled: Yes Hydration appropriate: Yes Nausea/Vomiting absent: Yes JAIRO TINAJERO MD Jan 22, 2019 21:40
[2019-01-22 22:45] VITALS: BP 107/60; PULSE 104; RESP 20
[2019-01-22] MEDS ORDERED: OXYCODONE/ACETAMINOPHEN (5/325) TAB PO PRN ×2 (23:30)
[2019-01-22] MEDS ORDERED: OXYTOCIN 30 UNITS/LR 500 ML IV PRN ×2 (23:30)
[2019-01-22] MEDS ORDERED: LACTATED RINGER'S 1,000 ML IV SCH (23:30)
[2019-01-22] MEDS ORDERED: CARBOPROST 250 MCG INJ IM PRN ×2 (23:30)
[2019-01-22] MEDS ORDERED: METHYLERGONOVINE 0.2 MG INJ IM PRN ×2 (23:30)
[2019-01-22] MEDS ORDERED: ZOLPIDEM 5 MG TAB PO PRN (23:30)
[2019-01-22] MEDS ORDERED: LANOLIN HPA 1 PKT TOP PRN (23:30)
[2019-01-22] MEDS ORDERED: MISOPROSTOL 200 MCG TAB PR PRN ×2 (23:30)
[2019-01-23 04:35] VITALS: BP 106/62; PULSE 99; RESP 18
--- NOTE | 2019-01-23 05:16 | OPR ---
DATE OF OPERATION: 01/22/2019 PREOPERATIVE DIAGNOSES: 1. 36 weeks 4 days, with a previous section 1 time, in labor. 2. Multiparity for tubal sterilization. POSTOPERATIVE DIAGNOSES: 1. 36 weeks 4 days, with a previous section 1, time in labor. 2. Multiparity for tubal sterilization. 3. Delivered the normal female . 4. Peritubal adhesion. OPERATION PERFORMED: Repeat low transverse section, right fimbriectomy and left partial sarwat pingectomy, Mike type. ANESTHESIA: Spinal. ANESTHESIOLOGIST: Dr. Flores. SURGEON: Bean Paz MD. BARREL PLATER: Ronda Marie MD. ESTIMATED BLOOD LOSS: Approximately 500 mL. PROCEDURE: Under the proper induction of spinal anesthesia, [place] [facility] [place] Car[place]illo catheter was introduced into the bladder under sterile condition. Deep repositioned to s upine. Abdominal wall was prepped and draped in usual aseptic manner. A transverse incision was mad e along the previous incisional scar. Scar tissue was excised. Incision was carried down through th e subcutaneous tissue to the anterior recti fascia, which was incised in the length of the incision. Fascial flap was created by blunt and sharp dissection of tendinous attachment, cephalad and 2 rectu s muscles were split and peritoneal cavity was entered. There is no adhesions noted. Bladder blade was introduced, and a transverse incision was made above the uterovesical reflection and the uterine incision, and this was layer by layer, reached the amniotic membrane, ruptured, revealed clear amniot ic fluid. The incision was extended and normal female was born from the left occiput transver se position. Mouth and nose were cleaned and delayed clamping done and cut and handed to the respira tory care personnel for further care. was 9 and 9. Baby weighed 7 pounds 2 ounces. Cord bloo d was obtained. The placenta removed manually and the uterus was exteriorized and the cavity was com pletely explored. Incision closed with #1 chromic catgut in continuous manner on the first layer, se cond layer was closed using 2-0 chromic catgut in continuous manner. No bleeder was noted. Then the right fallopian tube was identified and there is some peritubal filmy adhesions, so the separation o f the adhesion from the tubes to the ovary and there was a little bleeding noted. The fimbria was cl amped with a Pean and this was doubly ligated with 0 chromic catgut. Then bleeder was controlled wit h a 2-0 chromic catgut and attached to the tube pedicle. On the left fallopian tube revealed a more peritubal adhesions noted. So at this point, decided to do the Pomroy. The tubal loop of the tube w as created and this loop of tube was doubly ligated and the loop of tube was excised. Tubal lumen ca uterized. No bleeder was noted. After the irrigation was done, uterus was relocated into the abdomi nal cavity after the sponge, lap was removed from the abdominal cavity and the incisional site rechec ked and both tubes were checked, which was intact. A piece of Surgicel was laid on the uterine incis ion and the parietal peritoneum was closed using 0 chromic catgut and muscle closed with 0 chromic ca tgut in continuous manner. A piece of Surgicel was laid on the muscle prior to closing the fascia, w hich was closed with a #1 Vicryl in continuous manner in 2 segments. Subcutaneous tissue was irrigat ed. This layer was approximated with 2-0 plain after adequate hemostasis was secured. Skin closed w ith a 3-0 Monocryl in a subcuticular manner. A few additional simple stitches added on the closure. Steri-Strip applied. Pressure dressing applied. Estimated blood loss approximately 500 mL. Wally srinivasan withstood the procedure well and was sent to the recovery room in stable condition. Urine output a pproximately 200 mL, which was clear. Dictated By: BEAN SIMEON/DUDLEY Conf#: [id number] DID#: [id number] CC: RONDA MARIE MD; NICKI GONZALES MD;*End*
[2019-01-23] MEDS: IBUPROFEN 600 MG TAB PO SCH ×5 (06:00→23:38)
[2019-01-23 07:45] VITALS: BP 102/50; PULSE 95; RESP 18
--- NOTE | 2019-01-23 08:58 | DS ---
Date/Time of Note Date/Time of Note DATE: 01/23/19 TIME: 08:57 Discharge Summary Admission/Discharge Info Admit Date/Time Jan 21, 2019 at 23:29 Discharge Date/Time Discharge Diagnosis term and multiparity Patient Condition: Stable Hospital Course unremarkable Home Meds Reported Medications Multivit/Min/Fol Ac/Iron/Pren* ( S*) 1 Tab Tab, 1 TAB PO DAILY, TAB 12/10/14 Discontinued Scripts Guaifenesin* (Robitussin*) 100 Mg/5 Ml Syrup, 100 MG PO Q6H PRN for COUGH for 5 Days, #1 BOTTLE Prov:GIRISH ROMERO 08/19/18 Acetaminophen* (Acetaminophen*) 500 MG Extra Strength Tablet, 500 MG PO Q4H PRN for PAIN AND OR ELEVATED TEMP, #30 TAB Prov:ROMEROGIRISH SIMONS 08/19/18 Primary Care Provider Care Physician No Primary Pending Labs Laboratory Tests Test 01/23/19 06:00 01/23/19 06:50 Lab Scanned Report REFERENCE LAB [id number] White Blood Count 19.1 10^3/ul (4.8-10.8) Red Blood Count 3.69 10^6/ul (4.20-5.40) Hemoglobin 10.4 g/dl (12.0-16.0) Hematocrit 32.2 % (37.0-47.0) Mean Corpuscular Volume 87.3 fl (82.0-101.0) Mean Corpuscular Hemoglobin 28.2 pg (29.0-33.0) Mean Corpuscular 32.3 g/dl (32.0-37.0) Hemoglobin Concent Red Cell Distribution Width 14.3 % (11.5-14.5) Platelet Count 234 10^3/UL (140-415) Mean Platelet Volume 11.1 fl (7.4-10.4) Immature Granulocytes % 1.300 % (0.001-0.429) Neutrophils % 87.3 % (39.0-77.0) Lymphocytes % 4.6 % (15.0-51.0) Monocytes % 6.7 % (0.0-11.0) Eosinophils % 0.0 % (0.0-7.0) Basophils % 0.1 % (0.0-2.0) Nucleated Red Blood Cells % 0.0 /100WBC (0.0-0.0) Immature Granulocytes # 0.250 10^3/ul (0.0-0.031) Neutrophils # 16.7 10^3/ul (1.6-7.5) Lymphocytes # 0.9 10^3/ul (0.8-2.9) Monocytes # 1.3 10^3/ul (0.3-0.9) Eosinophils # 0.0 10^3/ul (0.0-0.5) Basophils # 0.0 10^3/ul (0.0-0.1) Nucleated Red Blood Cells # 0.0 10^3/ul (0.0-0.0) NICKI GONZALES MD Jan 23, 2019 08:57
[2019-01-23] MEDS: SENNA/DOCUSATE NA (8.6MG/50MG) TAB PO SCH ×2 (09:54→21:17)
[2019-01-23 12:00] VITALS: BP 99/53; PULSE 91; RESP 18
[2019-01-23 16:44] VITALS: BP 93/55; PULSE 92; RESP 18
[2019-01-23 20:35] VITALS: PULSE 95; RESP 18
[2019-01-24 04:00] VITALS: BP 107/55; PULSE 85; RESP 17
[2019-01-24] MEDS: IBUPROFEN 600 MG TAB PO SCH ×2 (05:36→12:23)
[2019-01-24] MEDS: SENNA/DOCUSATE NA (8.6MG/50MG) TAB PO SCH (09:25)
[2019-01-25] MEDS ORDERED: DIPHTH/TET/ACEL PERTUSS (ADULT) 0.5 ML VIAL IM* ONE (09:00)
--- NOTE | 2019-01-25 16:49 | DELSUM ---
Delivery Summary A-C Datetime Report Generated by CPN: 01/25/2019 16:48 DELIVERY PERSONNEL Ornamental Metal Erector: Villondo, Darya MATERNAL INFORMATION Delivery Anesthesia: Spinal Medications in Delivery: SEE ANESTHESIA RECORD Delivery QBL (ml): 700 Placenta Cultured: No Maternal Complications: None LABOR SUMMARY EDC: 02/15/2019 00:00 No. Babies in Womb: 1 Attempted: No Labor Anesthesia: Intrathecal LABOR INFORMATION Reason for Induction: Not Applicable Group B Beta Strep: Negative Antibiotics # of Doses: 1 Antibiotics Time of Last Dose: 01/22/2019 18:52 Steroids Given: <24Hrs before Delivery Reason Steroids Not Administered: Indication MEMBRANES Membranes Rupture Method: Artificial Rupture of Membranes: 01/22/2019 19:16 Length of Rupture (hr): 0.02 Amniotic Fluid Color: Clear Amniotic Fluid Amount: Moderate Amniotic Fluid Odor: None STAGES OF LABOR Stage 3 hr: 0 Stage 3 min: 3 CSECTION DELIVERY Primary Indication: Repeat Elective Secondary Indication: N/A CSection Urgency: Elective CSection Incidence: Repeat Labor: Labor Elective: Elective CSection Incision: Lower Uterine Transverse Sterilization Procedure: Mike BABY A INFORMATION Infant Delivery Date/Time: 01/22/2019 19:17 Method of Delivery: Born in Route : No : N/A Forceps: N/A Vacuum Extraction: N/A Shoulder Dystocia : N/A SHOULDER DYSTOCIA BABY A Infant Delivery Date/Time: 01/22/2019 19:17 PRESENTATION/POSITION BABY A Presentation: Cephalic Cephalic Presentation: Vertex Vertex Position: Left Occipital Anterior Breech Presentation: N/A PLACENTA INFORMATION BABY A Placenta Delivery Time : 01/22/2019 19:20 Placenta Method of Delivery: Manual Removal Placenta Status: Delivered SCORES BABY A Heart Rate 1 min: >100 bpm Resp Effort 1 min: Good Cry Reflex Irritability 1 min: Cough/Sneeze/Pulls Away Muscle Tone 1 min: Active Motion Color 1 min: Body Dent, Extremit Blue Resuscitation Effort 1 min: Oxygen SCORE 1 MIN: 9 Heart Rate 5 min: >100 bpm Resp Effort 5 min: Good Cry Reflex Irritability 5 min: Cough/Sneeze/Pulls Away Muscle Tone 5 min: Active Motion Color 5 min: Body Dent, Extremit Blue Resuscitation Effort 5 min: Oxygen SCORE 5 MIN: 9 INFANT INFORMATION BABY A Gestational Age at Delivery: 36.4 Gestational Status: Late - 34- 36.6 Weeks Infant Outcome : Liveborn, with signs of life Infant Condition : Stable Sex: Female IDENTIFICATION/MEDS BABY A ID Band Number: [id number] ID Band Location: Right Leg; Left Arm Sensor Applied: Yes Sensor Number: [id number] Sensor Location : Cord Clamp Vitamin K Given : Not Given Erythromycin Given: Not Given WEIGHT/LENGTH BABY A Birthweight (gm): 3225 Infant Weight (lb): 7 Infant Weight (oz): 2 Infant Length (in): 19.25 Length (cm): 48.90 CORD INFORMATION BABY A No. Cord Vessels: 3 Nuchal Cord : Around Neck x1, Loose Cord Blood Taken: No Infant Suction: Mouth; Nose ASSESSMENT BABY A Complications: None Physical Findings at Delivery: Within Normal Limits Respirations: Appears Normal Timber Spotter/ALS Called : No Infant Care By: Ashutosh TEJEDA Transferred To: Remains with Mother
== END 2019-01-24 16:46 | disposition home or self-care (01) | DRG 785 ==
LOC: OBT 16:05 → L-D 16:08 → OBT 23:29 → L-D 01-22 13:22 → PP1 01-22 22:58
PROVIDERS: ADMIT Obstetrics & Gynecology; ATTEND Obstetrics & Gynecology
PROC: 10D00Z1 Extraction of Products of Conception, Low, Open Approach (ICD-10-PCS; principal; 2019-01-22)
PROC: 0UT70ZZ Resection of Bilateral Fallopian Tubes, Open Approach (ICD-10-PCS; 2019-01-22)
DX: O60.13X0 Preterm labor second trimester with preterm delivery third trimester, not applicable or unspecified (principal); O99.62 Diseases of the digestive system complicating childbirth; K66.0 Peritoneal adhesions (postprocedural) (postinfection); Z3A.36 36 weeks gestation of pregnancy; Z37.0 Single live birth; Z30.2 Encounter for sterilization
CPT/HCPCS: 36415; 76818; 81001; 85025; 85610; 85730; 86592; 86850; 86900; 86901; 87340; 88302; 96360; 96361; 96372; 99464; G0463; J0690; J0702; J1100; J1885; J2274; J2370; J2405; J2590; J2765; J3105; J7120

== ENCOUNTER 2019-02-11 19:21 | Emergency (ER) | payer MEDICAID ==
[~2019-02-11] VITALS: Ht 157.5 cm; Wt 86.6 kg
[~2019-02-11 19:21] MED LIST changes: -ACET-141 PO; +CEPH-443 PO; -GUAI-637 PO; +IBUP-1542 PO
[2019-02-11 19:39] VITALS: BP 132/64; PULSE 71; RESP 20; Ht 157.5 cm; Wt 86.6 kg
--- NOTE | 2019-02-11 19:44 | ERD ---
ER Documentation Chief Complaint Chief Complaint STATES DRAINAGE AND PAIN TO LT SIDED C SECTION SITE SINCE THIS AM HPI 38-year-old female status post 3 weeks ago complains of discharge and bleeding from the left side of her wound. Leakage started this morning. She denies any fevers, vomiting, redness. ROS All systems reviewed and are negative except as per history of present illness. Medications Home Meds Active Scripts Ibuprofen* (Motrin*) 600 Mg Tab, 600 MG PO Q6, #20 TAB Prov:ISAMAR RED MD 02/11/19 Cephalexin* (Keflex*) 500 Mg Capsule, 500 MG PO QID for 7 Days, CAP Prov:ISAMAR RED MD 02/11/19 Reported Medications Multivit/Min/Fol Ac/Iron/Pren* ( S*) 1 Tab Tab, 1 TAB PO DAILY, TAB 12/10/14 Allergies Allergies: Coded Allergies: No Known Allergy (Unverified , 01/23/17) PMhx/Soc Medical and Surgical Hx: pt denies Medical Hx, pt denies Surgical Hx History of Surgery: No Anesthesia Reaction: No Hx Neurological Disorder: No Hx Respiratory Disorders: No Hx Cardiac Disorders: No Hx Psychiatric Problems: No Hx Miscellaneous Medical Probl: No Hx Alcohol Use: No Hx Substance Use: No Hx Tobacco Use: No Smoking Status: Never smoker FmHx Family History: No diabetes, No coronary disease, No other Physical Exam Vitals Vital Signs Date Temp Pulse Resp B/P (MAP) Pulse Ox O2 O2 Flow FiO2 Time Delivery Rate 02/11/19 97.2 71 20 132/64 100 19:39 (86) Physical Exam Const: No acute distress Head: Atraumatic Eyes: Normal Conjunctiva ENT: Normal External Ears, Nose and Mouth. Neck: Full range of motion. No meningismus. Resp: Clear to auscultation bilaterally Cardio: Regular rate and rhythm, no murmurs Abd: Soft, non tender, non distended. Normal bowel sounds. On the left lateral wound edge of a wound. There is a scant amount of serous discharge. There is no surrounding erythema, warmth, induration. No deep abdominal tenderness. Skin: No petechiae or rashes Back: No midline or flank tenderness Ext: No cyanosis, or edema Neur: Awake and alert Psych: Normal Mood and Affect Procedures/MDM Presents with signs and symptoms of a small postsurgical seroma on the lateral edge of her wound. There is no signs of cellulitis, deep abdominal tenderness to suggest abscess, additional concerning signs or symptoms. Wound was dressed. Patient will be treated with Keflex, ibuprofen, instructions for return precautions for worsening redness, fevers, new worsening symptoms with [facility] care doctor and OB. The patient was stable with no new complaints during the ER course. Clinically, there is no current evidence to suggest meningitis, sepsis, acute abdomen, pneumonia, stroke, acute coronary syndrome, pulmonary embolism, aortic dissection or any other emergent condition appearing to require further evaluation or hospitalization. Patient counseled regarding my diagnostic impression and care plan. Prior to discharge all questions answered. Pt agrees with treatment plan and understands strict return precautions. Pt is instructed to follow up with primary care provider within 24-48 hours. Precautionary instructions provided including instructions to return to the ER if not improving or for any worsening or changing symptoms or concerns. Disclaimer: Inadvertent spelling and grammatical errors are likely due to EHR/dictation software use and do not reflect on the overall quality of patient care. Also, please note that the electronic time recorded on this note does not necessarily reflect the actual time of the patient encounter. Departure Diagnosis: Primary Impression: Seroma Additional Impression: Encounter for wound re-check Condition: Stable Patient Instructions: Seroma, Postsurgical Additional Instructions: Cheque otro vez con musa doctor primario en el proximo cavazos or regresa para mas o nueva [place] ISAMAR RED MD Feb 11, 2019 19:44
== END 2019-02-11 19:45 | disposition home or self-care (01) ==
LOC: E/R 19:21 → FTE 19:45
DX: O90.2 Hematoma of obstetric wound (principal); B96.89 Other specified bacterial agents as the cause of diseases classified elsewhere
CPT/HCPCS: 99283